=== PATIENT | female | born 1960 | race Caucasian/White ===

== ENCOUNTER 2017-11-13 06:05 | Day surgery (SDC) | payer OTHER, BC ==
[~2017-11-13] VITALS: Ht 170.2 cm; Wt 103.2 kg
[~2017-11-13 06:05] MED LIST: ATECHL PO; CYCL10 PO; HYDACE5 PO; IBUP600 PO; METF500; PROM25 PO; ROSU10TA; RXCYCL10 PO; RXOXYACE PO; RXPROM25 PO; Ultram50 MG PO
[2017-11-13] MEDS ORDERED: CYAN500 PO (06:37)
[2017-11-13] MEDS ORDERED: ACET325 PO (06:38)
[2017-11-13] MEDS ORDERED: IBUP600 PO (06:38)
== END 2017-11-13 09:56 | disposition home or self-care (01) ==
LOC: ORSCSDS 06:05
PROVIDERS: Podiatrist Foot & Ankle Surgery
PROC: 0SBG4ZZ Excision of Left Ankle Joint, Percutaneous Endoscopic Approach (ICD-10-PCS; principal; 2017-11-13 07:30)
PROC: 0MQR4ZZ Repair Left Ankle Bursa and Ligament, Percutaneous Endoscopic Approach (ICD-10-PCS; principal; 2017-11-13 07:30)
PROC: 0LQT0ZZ Repair Left Ankle Tendon, Open Approach (ICD-10-PCS; principal; 2017-11-13 07:30)
DX: M25.372 Other instability, left ankle (principal); S93.492A Sprain of other ligament of left ankle, initial encounter; I10 Essential (primary) hypertension; E66.01 Morbid (severe) obesity due to excess calories; Z68.35 Body mass index [BMI] 35.0-35.9, adult; Z79.899 Other long term (current) drug therapy
CPT/HCPCS: C1713; J0171; J0690; J1100; J2250; J2405; J3010

== ENCOUNTER 2023-04-28 08:00 | Day surgery (SDC) | payer OTHER ==
[~2023-04-28] VITALS: Ht 170.2 cm; Wt 110.6 kg
[~2023-04-28 08:00] MED LIST changes: +ACET325 PO; +CYAN500 PO
[2023-04-28] MEDS ORDERED: ERGO400 (08:44)
[2023-04-28] MEDS ORDERED: CENTRUM SILVER1 EAC2 (08:44)
[2023-04-28 09:58] VITALS: BP 106/64
== END 2023-04-28 10:05 | disposition home or self-care (01) ==
LOC: ORSCSDS 08:00
PROVIDERS: Surgery
PROC: 0DBM8ZX Excision of Descending Colon, Via Natural or Artificial Opening Endoscopic, Diagnostic (ICD-10-PCS; principal; 2023-04-28 09:15)
DX: Z12.11 Encounter for screening for malignant neoplasm of colon (principal); Z86.010 Personal history of colon polyps; Z85.040 Personal history of malignant carcinoid tumor of rectum; D12.4 Benign neoplasm of descending colon; K57.30 Diverticulosis of large intestine without perforation or abscess without bleeding; E78.5 Hyperlipidemia, unspecified; E88.819 Insulin resistance, unspecified; Z68.39 Body mass index [BMI] 39.0-39.9, adult; Z79.899 Other long term (current) drug therapy
CPT/HCPCS: 88305; J2704; J7120